=== PATIENT | male | born 1975 | race Two or more races ===

== ENCOUNTER 2021-04-26 13:05 | Emergency (ER) | payer MEDICAID, OTHER ==
[~2021-04-26] VITALS: Ht 185.4 cm; Wt 119.3 kg
[2021-04-26 13:12] VITALS: BP 146/94
== END 2021-04-26 16:00 | disposition home or self-care (01) ==
LOC: ER 13:05
DX: B35.3 Tinea pedis (principal); L08.9 Local infection of the skin and subcutaneous tissue, unspecified

== ENCOUNTER 2021-07-19 13:22 | Emergency (ER) | payer MEDICAID, OTHER ==
[~2021-07-19] VITALS: Ht 180.3 cm; Wt 120.2 kg
[2021-07-19] MEDS ORDERED: cefTRIAXone 1GM/50ML D5W 50 ML IV ONE (17:15)
[2021-07-19] MEDS ORDERED: CLINDAMYCIN 300MG IV 50 ML IV ONE (17:15)
[2021-07-19 17:17] LABS: Basophils # (auto) 0.1 10 ^3/uL (0-0.2); Basophils % (auto) 0.8 % (0.0-2.0); Eosinophils # (auto) 0.2 10 ^3/uL (0-0.8); Eosinophils % (auto) 2.2 % (0.0-7.0); Hematocrit 47.9 % (41.0-53.0); Hemoglobin 15.9 g/dL (13.5-17.5); Lymphocytes # (auto) 1.9 10 ^3/uL (0.4-5.4); Lymphocytes % (auto) 24.2 % (10.0-50.0); Mean Corpuscular Hemoglobin 30.6 pg (28.0-32.0); Mean Corpuscular Hgb Conc. 33.3 g/dL (32.0-36.0); Mean Corpuscular Volume 92.1 fL (80.0-100.0); Monocytes # (auto) 0.7 10 ^3/uL (0-1.3); Monocytes % (auto) 9.3 % (0.0-12.0); Neutrophils # (auto) 4.9 10 ^3/uL (1.6-8.6); Neutrophils % (auto) 63.5 % (37.0-80.0); Nucleated Red Blood Cells % 0.1 %; Red Cell Distribution Width 13.4 % (11.8-14.3); White Blood Cell 7.7 10^3/uL (4.4-10.8)
[2021-07-19 17:51] LABS: Albumin 3.5 g/dL (3.4-5.0); Calcium 8.8 mg/dL (8.5-10.1); Potassium 4.5 mmol/L (3.5-5.1)
[2021-07-19 17:54] LABS: BUN/Creatinine Ratio 16.9; Bilirubin, Total 0.4 mg/dL (0.2-1.0); Total Protein 8.9 g/dL (6.4-8.2)
[2021-07-19 18:40] VITALS: BP 132/65
== END 2021-07-19 19:09 | disposition still patient (30) ==
LOC: ER 13:22
DX: L02.413 Cutaneous abscess of right upper limb (principal)
CPT/HCPCS: 36415; 73200; 80053; 85025; 87040; 96365; 96375; 99284; J0696; J3490; 96367

== ENCOUNTER 2021-10-20 14:53 | Emergency (ER) | payer OTHER ==
[~2021-10-20] VITALS: Ht 180.3 cm; Wt 120.2 kg
[2021-10-20 16:24] VITALS: BP 130/59
== END 2021-10-20 16:46 | disposition left against medical advice (07) ==
LOC: ER 15:02
DX: T81.89XA Other complications of procedures, not elsewhere classified, initial encounter (principal); S71.112D Laceration without foreign body, left thigh, subsequent encounter; X58.XXXD Exposure to other specified factors, subsequent encounter

== ENCOUNTER 2021-11-24 13:56 | Emergency (ER) | payer OTHER ==
[~2021-11-24] VITALS: Ht 180.3 cm; Wt 120.2 kg
[2021-11-24 14:41] VITALS: BP 125/77
[2021-11-24] MEDS ORDERED: LIDOCAINE 1% HCL (LOCAL ANESTH.) INJ 20ML MDV ONE (15:12)
[2021-11-24] MEDS ORDERED: SULF400T11 PO (15:12)
[2021-11-24] MEDS ORDERED: IBUP800T27 PO (15:12)
[2021-11-24] MEDS ORDERED: cefTRIAXone SOD 1,000 MG VL IM ONE (15:15)
== END 2021-11-24 15:27 | disposition home or self-care (01) ==
LOC: ER 13:56
DX: L02.511 Cutaneous abscess of right hand (principal); F17.210 Nicotine dependence, cigarettes, uncomplicated; F15.10 Other stimulant abuse, uncomplicated
CPT/HCPCS: 96372; 99283; J0696; J2001

== ENCOUNTER 2021-11-28 13:08 | Emergency (ER) | payer OTHER ==
[~2021-11-28] VITALS: Ht 185.4 cm; Wt 124.7 kg
[~2021-11-28 13:08] MED LIST: IBUP800T27 PO; SULF400T11 PO
[2021-11-28 14:48] VITALS: BP 140/89
== END 2021-11-28 14:50 | disposition left against medical advice (07) ==
LOC: ER 13:08
DX: L02.511 Cutaneous abscess of right hand (principal); F15.10 Other stimulant abuse, uncomplicated; F17.210 Nicotine dependence, cigarettes, uncomplicated; Z79.1 Long term (current) use of non-steroidal anti-inflammatories (NSAID); Z79.899 Other long term (current) drug therapy